=== PATIENT | male | born 1965 | race Caucasian/White ===

== ENCOUNTER 2017-11-09 19:39 | Inpatient (IN) | payer BC ==
[~2017-11-09] VITALS: Ht 172.7 cm; Wt 89.9 kg
[~2017-11-09 19:39] MED LIST: ASPIRIN325 MG; CRESTOR40 MG PO; Ecotrin PO; HYDROCHLOROTHIA25 MG PO; METOPROLOL SUCC50 MG PO; PANTOPRAZOLE SO40 MG PO; Percocet 5/325,Endoc PO; Plavix PO; TYLENOL WITH C1 EACH PO
[2017-11-09 20:33] LABS: HEMATOCRIT 41.4 % (38.0-50.0); HEMOGLOBIN 14.1 G/DL (12.5-16.6); MCHC 34.1 G/DL (30.0-36.0); MCV 82.1 FL (86-99); PLATELET COUNT 179 K/uL (156-360); RBC DIS.WIDTH-CV 14.1 % (11.8-14.6); RED BLOOD COUNT 5.04 M/uL (4.00-5.50); WHITE BLOOD COUNT 3.4 K/uL (4.1-10.2)
[2017-11-09 20:47] LABS: CHLORIDE 103 mEq/L (99-109); SODIUM 139 mEq/L (136-147)
[2017-11-09 20:49] LABS: GLUCOSE 94 mg/dL (70-99)
[2017-11-09 20:53] LABS: CREATININE 1.2 mg/dL (0.6-1.3); GFR ESTIMATE (CALCULATED) > 59 mL/min/ (58.99-99999)
[2017-11-09 20:54] LABS: UREA NITROGEN (BUN) 12 mg/dL (9-23)
[2017-11-09 20:57] LABS: TROP-I INTERPRETATION NEGATIVE; TROPONIN-I < 0.01 ng/mL (0.0-0.30)
[2017-11-09] MEDS ORDERED: DYAZIDE, MA1 CAPSULE PO (21:28)
[2017-11-09] MEDS ORDERED: LO-DOSE ASPIRIN81 M1 PO (21:29)
[2017-11-09] MEDS ORDERED: ZITHROMAX250 MG PO (21:29)
[2017-11-09] MEDS ORDERED: CLOPIDOGREL75 MG PO (21:30)
[2017-11-09] MEDS ORDERED: IMDUR30 MG PO (21:30)
[2017-11-09] MEDS ORDERED: CEFTIN500 MG PO (21:31)
[2017-11-09] MEDS ORDERED: NORVASC10 MG PO (21:32)
[2017-11-09] MEDS ORDERED: ZOCOR40 MG PO (21:32)
[2017-11-09] MEDS ORDERED: PROAIR HFA8.5 GM IH (21:33)
[2017-11-09] MEDS ORDERED: LOSARTAN POTASS50 MG PO (21:33)
[2017-11-10 01:21] VITALS: BP 119/69
[2017-11-10 06:50] VITALS: BP 122/76
[2017-11-10 15:00] VITALS: BP 126/76
[2017-11-10 18:42] LABS: TROP-I INTERPRETATION NEGATIVE; TROPONIN-I < 0.01 ng/mL (0.0-0.30)
[2017-11-10 23:58] VITALS: BP 130/67
[2017-11-11 02:53] LABS: TROP-I INTERPRETATION NEGATIVE; TROPONIN-I < 0.01 ng/mL (0.0-0.30)
[2017-11-11 06:27] LABS: CHLORIDE 104 MEQ/L (99-109); GFR ESTIMATE (CALCULATED) > 59 mL/min/ (58.99-99999); HDL CHOLESTEROL 23 MG/DL (Desirable>=40); LDL CHOLESTEROL 122 mg/dL (Desirable<100); NON-HDL CHOLESTEROL 142 mg/dL (Desirable<160); SODIUM 137 MEQ/L (136-147); TOTAL CHOLESTEROL 165 mg/dL (Desirable<200); TRIGLYCERIDES 99 MG/DL (Normal: <150); UREA NITROGEN (BUN) 17 mg/dL (9-23)
[2017-11-11 06:29] LABS: GLUCOSE 222 mg/dL (70-99); POTASSIUM 3.7 MEQ/L (3.7-5.4)
[2017-11-11 07:31] VITALS: BP 120/72
[2017-11-11 09:57] LABS: HEMOGLOBIN A1c (GLYCOHEMOGLOB) 5.8 % (Below 5.7)
[2017-11-11 10:15] LABS: TROP-I INTERPRETATION NEGATIVE; TROPONIN-I < 0.01 ng/mL (0.0-0.30)
[2017-11-11 16:44] VITALS: BP 129/75
[2017-11-11 18:36] LABS: TROP-I INTERPRETATION NEGATIVE; TROPONIN-I < 0.01 ng/mL (0.0-0.30)
[2017-11-11 23:44] VITALS: BP 125/68
[2017-11-12 03:09] LABS: BASOPHIL (%) 0.1 % (0-1); EOSINOPHIL (%) 0 % (0-5); HEMATOCRIT 35.2 % (38.0-50.0); IMMATURE GRANULOCYTE (%) 0.7 % (0.0-0.7); LYMPHOCYTE (%) 6.6 % (15-42); LYMPHOCYTE COUNT 0.6 K/uL (1.0-2.8); MCH 27.8 PG (29.0-34.0); MCHC 34.4 G/DL (30.0-36.0); MCV 80.9 FL (86-99); MONOCYTE (%) 5.2 % (3-12); MONOCYTE COUNT 0.5 K/uL (0-0.8); NEUTROPHIL (%) 87.4 % (45-76); NEUTROPHIL COUNT 8.2 K/uL (1.8-6.4); PLATELET COUNT 210 K/uL (156-360); RBC DIS.WIDTH-CV 13.8 % (11.8-14.6); RBC DIS.WIDTH-SD 41.4 % (39-53); RED BLOOD COUNT 4.35 M/uL (4.00-5.50); WHITE BLOOD COUNT 9.4 K/uL (4.1-10.2)
[2017-11-12 03:10] LABS: HEMOGLOBIN 12.1 G/DL (12.5-16.6)
[2017-11-12 03:30] LABS: CHLORIDE 106 MEQ/L (99-109); CREATININE 0.9 MG/DL (0.6-1.3); GFR ESTIMATE (CALCULATED) > 59 mL/min/ (58.99-99999); GLUCOSE 272 mg/dL (70-99); POTASSIUM 3.8 MEQ/L (3.7-5.4); SODIUM 138 MEQ/L (136-147); UREA NITROGEN (BUN) 20 mg/dL (9-23)
[2017-11-12 03:34] LABS: TROP-I INTERPRETATION NEGATIVE; TROPONIN-I < 0.01 ng/mL (0.0-0.30)
[2017-11-12 08:17] VITALS: BP 122/75
[2017-11-12] MEDS ORDERED: LEVOFLOXACIN750 MG PO (08:19)
[2017-11-12] MEDS ORDERED: ANORO ELLIPTA1 EACH IH (08:20)
[2017-11-12] MEDS ORDERED: PREDNISONE20 MG PO (08:20)
[2017-11-12] MEDS ORDERED: HYDROCODON-ACE1 EAC7 PO (08:21)
[2017-11-12 10:52] LABS: TROP-I INTERPRETATION NEGATIVE; TROPONIN-I < 0.01 ng/mL (0.0-0.30)
== END 2017-11-12 12:24 | disposition home or self-care (01) | DRG 195 ==
LOC: EME 19:39 → 5EAST 23:58 → EDOF 23:58 → ENRESERV 11-10 00:01 → 5EAST 11-10 01:16 → ENPENDDIS 11-12 → 5EAST 11-12 12:24
PROVIDERS: Family Medicine
DX: J18.1 Lobar pneumonia, unspecified organism (principal); I25.10 Atherosclerotic heart disease of native coronary artery without angina pectoris; K21.9 Gastro-esophageal reflux disease without esophagitis; I10 Essential (primary) hypertension; E87.6 Hypokalemia; R73.03 Prediabetes; Z87.891 Personal history of nicotine dependence; E78.5 Hyperlipidemia, unspecified; Z95.5 Presence of coronary angioplasty implant and graft; F17.210 Nicotine dependence, cigarettes, uncomplicated; R73.9 Hyperglycemia, unspecified
CPT/HCPCS: 71046; 71275; 80048; 80061; 82948; 83036; 83605; 84484; 85025; 85027; 87040; 87081; 93005; 94640; 94640 76; 99202; 99281; 99285; J0696; J2270; J2405; J2930